=== PATIENT | male | born 1960 | race Caucasian/White ===

== ENCOUNTER 2017-04-11 12:14 | Inpatient (IN) | payer OTHER ==
[~2017-04-11] VITALS: Ht 182.9 cm; Wt 92.3 kg
--- NOTE | 2017-04-11 12:40 | NUR ---
NADIRA [employer] IN CUSTODY FOR MEDICAL CLEARANCE . PT COMPLAINS OF PALPITATION WHOLE DAY. PLACED ON GOWNED .
--- NOTE | 2017-04-11 12:40 | NUR ---
PLACED ON MONITOR.
[2017-04-11] MEDS ORDERED: DILTIAZEM HCL 25 MG IV ONE (12:49)
[2017-04-11 12:53] LABS: BASOPHILS # (AUTO) 0.1 /CMM (0.0-0.2); BASOPHILS % (AUTO) 0.6 % (0.0-2.0); EOSINOPHILS # (AUTO) 0.1 /CMM (0.0-0.7); EOSINOPHILS % (AUTO) 1.3 % (0.0-6.0); HEMATOCRIT 43 % (39-51); HEMOGLOBIN 14.1 g/dL (13.5-17.5); LYMPHOCYTES # (AUTO) 1.6 /CMM (0.8-4.8); LYMPHOCYTES % (AUTO) 18.2 % (20.0-44.0); MEAN CORPUSCULAR HEMOGLOBIN 29 PG (26.0-33.0); MEAN CORPUSCULAR HGB CONC 33 g/dl (31.0-36.0); MEAN CORPUSCULAR VOLUME 89 fL (80-96); MONOCYTES # (AUTO) 0.5 /CMM (0.1-1.30); NEUTROPHILS # (AUTO) 6.6 /CMM (1.8-8.9); NEUTROPHILS % (AUTO) 73.9 % (43.0-81.0); PLATELET COUNT (AUTO) 331 /CMM (150-450); RDW COEFFICIENT OF VARIATION 13.5 (11.5-15.0); RED BLOOD CELL COUNT(AUTO) 4.86 MIL/uL (4.5-6.0); WHITE BLOOD COUNT (AUTO) 8.9 K/uL (4.3-11.0)
--- NOTE | 2017-04-11 12:56 | NUR ---
CALLED [facility], INSTRUCTIONAL TECHNOLOGY TEACHER ELIGIBILITY SPECIALIST WAS PAGED.
[2017-04-11] MEDS ORDERED: IV NS 0.9% 1,000 ML BAG IV ONE (13:00)
[2017-04-11] MEDS ORDERED: DILTIAZEM HCL 50 MG IV IV ONE (13:00)
[2017-04-11 13:04] LABS: CALCIUM, SERUM 8.7 mg/dL (8.5-10.1); CREATININE 1.1 mg/dL (0.6-1.3); POTASSIUM 4.4 mmol/L (3.5-5.1)
[2017-04-11 13:09] LABS: INR 1.09 (0.87-1.13); PROTHROMBIN TIME 11.3 SECS (9.5-12.7)
[2017-04-11 13:13] LABS: TROPONIN I 0.057 ng/mL (0.00-0.056)
[2017-04-11] MEDS ORDERED: ASPIRIN EC 325 MG TABLET.DR PO ONE (13:17)
[2017-04-11] MEDS ORDERED: ASPIRIN 325 MG TABLET PO ONE (13:30)
--- NOTE | 2017-04-11 13:36 | NUR ---
PATIENT WILL BE ADMITTED INTO ROOM 122-1.
--- NOTE | 2017-04-11 14:23 | NUR ---
GAVE REPORT TO TORI WEBSTER 114 TELE NEW ONSET AFIB/AFLUTTER DR ESPINOSA ADMITTING
[2017-04-11 14:30] VITALS: BP 104/80
--- NOTE | 2017-04-11 14:30 | NUR ---
VMWARE ADMINISTRATOR ADMITTING NOTES: REC'D REPORT FROM ANDREW MTZ RN. PT ADMITTED TO [facility] RM 112/1, TRANSFERRED VIA GURNEY ACCOMPANIED BY RN AND 4 POLICEMEN. PT IS AMBULATORY W/ STEADY GAIT. PT IS A/O X4, DENIES ANY PAIN/ DISCOMFORT AT THIS TIME. PT ON ROOM AIR, SATURATING AT 95%, NO SOB NOTED. ON TELEMONITOR, NOTED ATRIAL FLUTTER W/ HR 85 BPM. HAS L AC G20, SL, FLUSHED, PATENT & INTACT W/ NO S/SX OF INFECTION/ INFILTRATION NOTED. DR. ESPINOSA AWARE OF PT'S ADMISSION W/ ORDERS MADE AND CARRIED OUT. PT ORIENTED TO ROOM. PROVIDED COMFORT & SAFETY MEASURES. CALL LIGHT PLACED W/IN REACH. NO WOUNDS NOTED. WILL CONTINUE TO MONITOR.
[2017-04-11] MEDS ORDERED: ONDANSETRON HCL/PF 4 MG/2 ML VIAL IVP PRN (15:00)
[2017-04-11] MEDS ORDERED: MAG HYDROX/AL HYDROX/SIMETH 30 ML UDC PO PRN (15:00)
[2017-04-11] MEDS ORDERED: ZOLPIDEM TARTRATE 5 MG TABLET PO PRN (15:00)
[2017-04-11] MEDS ORDERED: ACETAMINOPHEN 325 MG TABLET PO PRN (15:00)
[2017-04-11] MEDS ORDERED: MAGNESIUM HYDROXIDE 30 ML UDC PO PRN (15:00)
[2017-04-11] MEDS ORDERED: HYDROCODONE/APAP 5/325MG 1 EACH TABLET PO PRN (15:00)
[2017-04-11] MEDS ORDERED: Z GUARD REMEDY 2 OZ OINT TP PRN (15:00)
[2017-04-11 16:00] VITALS: BP 110/80
[2017-04-11] MEDS ORDERED: ENOXAPARIN SODIUM 40 MG/0.4 ML DISP.SYRIN SQ SCH (16:00)
--- NOTE | 2017-04-11 18:05 | NUR ---
RN NOTES: PT REFERRED TO DR. ESPINOSA FOR HR 140'S, BP 137/97. PT DENIES ANY CHEST PAIN AND PALPITATIONS. PER MD, GIVE LOPRESSOR 5 MG IV Q4H PRN FOR HR >110. GIVE DOSE NOW THEN IF IT DOESN'T WORK, WE CAN START AMIO GTT.
[2017-04-11] MEDS: METOPROLOL TARTRATE INJ 5 MG/5 ML AMPUL IVP PRN ×2 (18:25→20:42)
--- NOTE | 2017-04-11 18:53 | NUR ---
RN NOTES: DR. ESPINOSA UPDATED PT CONDITION POST GIVING LOPRESSOR IVP. PT HR AT 80'S. ORDERED TO START METOPROLOL TARTRATE 50 MG PO BID SCHEDULED.
--- NOTE | 2017-04-11 19:00 | NUR ---
PLANT PHYSIOLOGY TEACHER CLOSING NOTES: PT KEPT WELL RESTED. NEEDS ATTENDED. TELEMONITOR STILL ATRIAL FLUTTER W/ HR NOW AT 80'S. NO C/O CHEST PAIN AND PALPITATION W/IN SHIFT. L AC G20 KEPT PATENT & INTACT W/ NO S/SX OF INFECTION/ INFILTRATION. HAS HANDCUFF ON R ARM W/ 1 ROBOT DESIGNER AT BEDSIDE. CALL LIGHT W/IN REACH. ENDORSED TO PM RN FOR ALEXIS.
--- NOTE | 2017-04-11 19:54 | NUR ---
MIXING HOUSE OPERATOR INITIAL NOTES: PT RECEIVED ASLEEP IN BED, HOB ELEVATED. NEEDS ATTENDED. TELEMONITOR STILL ATRIAL FLUTTER W/ HR NOW AT 80'S. NO C/O CHEST PAIN AND PALPITATION W/IN SHIFT. L AC G20 KEPT PATENT & INTACT W/ NO S/SX OF INFECTION/ INFILTRATION. HAS HANDCUFF ON R ARM W/ 1 OCCUPATIONAL THERAPY SUPERVISOR AT BEDSIDE. CALL LIGHT W/IN REACH. ENDORSED TO PM RN FOR ALEXIS.
[2017-04-11 20:00] VITALS: BP 117/78
[2017-04-11 20:19] VITALS: BP 117/78
[2017-04-12] VITALS (7 sets, daily range): BP systolic 98–120; BP diastolic 62–92
[2017-04-12 06:01] LABS: BASOPHILS % (AUTO) 0.6 % (0.0-2.0); EOSINOPHILS # (AUTO) 0.1 /CMM (0.0-0.7); EOSINOPHILS % (AUTO) 1.1 % (0.0-6.0); HEMATOCRIT 44 % (39-51); HEMOGLOBIN 14.6 g/dL (13.5-17.5); LYMPHOCYTES # (AUTO) 2.2 /CMM (0.8-4.8); LYMPHOCYTES % (AUTO) 24.8 % (20.0-44.0); MEAN CORPUSCULAR HEMOGLOBIN 29 PG (26.0-33.0); MEAN CORPUSCULAR HGB CONC 33 g/dl (31.0-36.0); MEAN CORPUSCULAR VOLUME 89 fL (80-96); MONOCYTES # (AUTO) 0.6 /CMM (0.1-1.30); NEUTROPHILS % (AUTO) 66.5 % (43.0-81.0); PLATELET COUNT (AUTO) 316 /CMM (150-450); RDW COEFFICIENT OF VARIATION 14.3 (11.5-15.0); RED BLOOD CELL COUNT(AUTO) 4.96 MIL/uL (4.5-6.0)
[2017-04-12 06:51] LABS: ALBUMIN 3.5 g/dL (3.4-5.0); BILIRUBIN,TOTAL 0.6 mg/dL (0.2-1.0); CALCIUM, SERUM 8.7 mg/dL (8.5-10.1); CREATININE 1.1 mg/dL (0.6-1.3); PHOSPHORUS 3.3 mg/dL (2.5-4.9); POTASSIUM 4.3 mmol/L (3.5-5.1); TOTAL PROTEIN, SERUM 6.7 g/dL (6.4-8.2)
--- NOTE | 2017-04-12 06:54 | NUR ---
SUPERVISOR RIDES CLOSING NOTES: PT ENDORSED ASLEEP IN BED, HOB ELEVATED. NEEDS ATTENDED. TELEMONITOR STILL ATRIAL FLUTTER W/ HR NOW AT 80'S. NO C/O CHEST PAIN AND PALPITATION W/IN SHIFT. L AC G20 KEPT PATENT & INTACT W/ NO S/SX OF INFECTION/ INFILTRATION. HAS HANDCUFF ON R ARM W/ 1 BEATER LEAD AT BEDSIDE. CALL LIGHT W/IN REACH. ENDORSED TO PM RN FOR ALEXIS.
--- NOTE | 2017-04-12 07:30 | NUR ---
TANK FARM ATTENDANT NOTES: PT RECEIVED ASLEEP IN BED, HOB ELEVATED. NEEDS ATTENDED. TELEMONITOR STILL ATRIAL FLUTTER W/ HR NOW ATHR 110 NO C/O CHEST PAIN AND PALPITATION W/IN SHIFT. L AC G20 KEPT PATENT & INTACT W/ NO S/SX OF INFECTION/ INFILTRATION. HAS HANDCUFF ON R ARM W/ 1 UNIVERSITY LIBRARIAN AT BEDSIDE. CALL LIGHT W/IN REACH. ENDORSED TO PM RN FOR ALEXIS. Addendum: 04/12/17 at 0803 by REYNA RIOS RN WILL CONT TO MONITOR CLOSELY
[2017-04-12] MEDS: METOPROLOL TARTRATE INJ 5 MG/5 ML AMPUL IVP PRN (07:56)
--- NOTE | 2017-04-12 08:00 | NUR ---
[place] CLERK NOTE HR [address] ESPINOSA AT BEED SIDE ,AWARE OF HR OK TO GIVE METOPROLOL 5MG IVP AT THIS TIME ,GIVEN ORDERED ,WILL F\U
--- NOTE | 2017-04-12 08:47 | NUR ---
INTERVENTIONAL TECH NOTE HR 94 AT THIS TIME ,WILL CONT TO MONITOR CLOSELY
[2017-04-12] MEDS: METOPROLOL TARTRATE 50 MG TABLET PO SCH ×2 (08:52→16:13)
[2017-04-12] MEDS: PANTOPRAZOLE 40 MG TABLET.DR PO SCH (08:52)
--- NOTE | 2017-04-12 08:54 | NUR ---
LANCE CREWMEMBER/MLRS SERGEANT NOTE METOPROLOL 50 MG PO HOLD AT THIS TIME, PRN METOPROLOL 5 MG IVP WAS GIVEN BY ORDER DENISSE CAVAZOS TO MONITOR CLOSELY
--- NOTE | 2017-04-12 11:10 | NUR ---
OIL SPOT WASHER NOTE RESTING COMFORTABLY, NOT IN ACUTE DISTRESS
--- NOTE | 2017-04-12 14:29 | NUR ---
rn telehealth note dr hernandez spring machine operator aware that earlier hr was afib 45 Lopressor given as ordered 5 mg iv, .stated ok will check patient Addendum: 04/12/17 at 1522 by REYNA RIOS RN CORRECTION HR 145
[2017-04-12] MEDS ORDERED: DILTIAZEM HCL 25 MG IV IV PRN (14:30)
[2017-04-12] MEDS ORDERED: IPRATROPIUM NEB FS 0.5 MG/2.5 ML AMPUL.NEB NEB PRN (14:30)
[2017-04-12] MEDS ORDERED: METOPROLOL TARTRATE INJ 5 MG/5 ML AMPUL IVP PRN (15:00)
--- NOTE | 2017-04-12 15:22 | NUR ---
SEWING TECHNIQUES DEMONSTRATOR NOTE CLARIFICATION CARDIZEM AND METOPROLOL IV PRN ORDER DONE ,IF HR ABOVE 110 OK TO GIVE CARDIZEM OR METOPROLOL
--- NOTE | 2017-04-12 15:50 | NUR ---
BIANKA RN NOTE ON BREATHING TX ORDERED T AT BEDSIDE
--- NOTE | 2017-04-12 16:09 | NUR ---
BIANKA RN NOTE SMOKING CESSATION GIVEN, UNDERSTOOD
[2017-04-12] MEDS ORDERED: RIVAROXABAN 10 MG TABLET PO SCH (17:00)
[2017-04-12] MEDS: DILTIAZEM HCL 30 MG TABLET PO SCH (17:25)
--- NOTE | 2017-04-12 18:54 | NUR ---
BIANKA RN NOTE C\O SOB PLACED ON 2L NC ,SAT 96%, WILL F\U
[2017-04-13] VITALS: BP 119/80
[2017-04-13 04:00] VITALS: BP 136/76
[2017-04-13] MEDS: DILTIAZEM HCL 30 MG TABLET PO SCH ×3 (06:15→12:08)
--- NOTE | 2017-04-13 06:23 | NUR ---
RN NOTES 0600 remains with right hand cuff due to police custody. Alert and verbally responsive; no agitation during the shift; cooperative. Remains with uncontrolled atrial fib/flutter. On cardizem po q 6hrs. Tolerates oral fluids. LAC saline lock patent and intact. Refused bed bath when offered. Call light within reach
[2017-04-13 06:38] LABS: BASOPHILS % (AUTO) 0.3 % (0.0-2.0); EOSINOPHILS # (AUTO) 0.1 /CMM (0.0-0.7); EOSINOPHILS % (AUTO) 1.6 % (0.0-6.0); HEMATOCRIT 44 % (39-51); HEMOGLOBIN 14.9 g/dL (13.5-17.5); LYMPHOCYTES # (AUTO) 2.2 /CMM (0.8-4.8); LYMPHOCYTES % (AUTO) 29.1 % (20.0-44.0); MEAN CORPUSCULAR HEMOGLOBIN 30 PG (26.0-33.0); MEAN CORPUSCULAR HGB CONC 34 g/dl (31.0-36.0); MEAN CORPUSCULAR VOLUME 88 fL (80-96); MONOCYTES # (AUTO) 0.6 /CMM (0.1-1.30); MONOCYTES % (AUTO) 7.7 % (2.0-12.0); NEUTROPHILS # (AUTO) 4.7 /CMM (1.8-8.9); NEUTROPHILS % (AUTO) 61.3 % (43.0-81.0); PLATELET COUNT (AUTO) 288 /CMM (150-450); RDW COEFFICIENT OF VARIATION 14.1 (11.5-15.0); RED BLOOD CELL COUNT(AUTO) 4.98 MIL/uL (4.5-6.0); WHITE BLOOD COUNT (AUTO) 7.7 K/uL (4.3-11.0)
[2017-04-13 06:44] LABS: CALCIUM, SERUM 8.9 mg/dL (8.5-10.1)
--- NOTE | 2017-04-13 07:20 | NUR ---
BIANKA INITIAL NOTE RECEIVED PT IN BED, ASLEEP, EASY TO AROUSE, ABLE TO FOLLOW COMMANDS, RESPONSIVE TO NAME, PT IS ON RA, SATING WELL, BREATHING IS UNLABORED AND EVEN, NO S/S OF SOB OR RESP.DISTRESSED NOTED AT THIS TIME, PT IS ON TELE MONITOR SHOWING A FLUTTER @ 132 BPM, NO CHEST PAIN OR DISCOMFORT NOTED AT THIS TIME, PT HAS URINAL AT BEDSIDE, PT HAS R HANDCUFF IN PLACE D/T POLICE CUSTODY, PT HAS LAC#20G,SL,C/D/I/PATENT, FLUSHING WELL, NO S/S OF INFECTION/ INFILTRATION NOTED AT THIS TIME, ALL SAFETY MEASURES IN PLACE AT ALL TIMES, CALL LIGHT WITHIN EASY REACH, WILL MONITOR PT CLOSELY FOR CHANGES
[2017-04-13 08:00] VITALS: BP 100/69
[2017-04-13] MEDS: PANTOPRAZOLE 40 MG TABLET.DR PO SCH (08:21)
[2017-04-13] MEDS: METOPROLOL TARTRATE 50 MG TABLET PO SCH (08:22)
[2017-04-13 12:00] VITALS: BP 104/80
[2017-04-13 12:08] VITALS: BP 104/80
[2017-04-13] MEDS ORDERED: MOME13HF INH (12:29)
[2017-04-13] MEDS ORDERED: AMLO10TA2 PO (12:29)
[2017-04-13] MEDS ORDERED: TIOT18CA3 IH (12:29)
[2017-04-13] MEDS ORDERED: MONT10TA22 PO (12:29)
[2017-04-13] MEDS ORDERED: ALBU18HF2 INH (12:29)
[2017-04-13] MEDS ORDERED: ATOR20TA PO (12:29)
--- NOTE | 2017-04-13 14:55 | NUR ---
BIANKA NOTE PT REQUESTED TO LEAVE AMA, EXPLAINED RISK AND BENEFITS, PT STILL WANTED TO LEAVE AMA, INFORMED DR. ESPINOSA, IVS REMOVED, ALL BELONGINGS WITH PT, BELONGING LIST SIGNED, ALL RX WITH PT, PT LEFT VIA WHEELCHAIR TP WAITING ROOM, PT DID NOT WANT LABS AND ANY TESET RESULTS COPIES. PT REFUSED TO WAIT FOR FRIEND.
== END 2017-04-13 14:53 | disposition left against medical advice (07) | DRG 280 ==
LOC: ER 12:16 → TELE1 14:33 → TELE-TD 04-12 15:31
PROVIDERS: ADMIT Family Medicine; ATTEND Family Medicine
DX: I48.92 Unspecified atrial flutter (principal); I21.4 Non-ST elevation (NSTEMI) myocardial infarction; I50.23 Acute on chronic systolic (congestive) heart failure; I48.91 Unspecified atrial fibrillation; F17.210 Nicotine dependence, cigarettes, uncomplicated; F15.90 Other stimulant use, unspecified, uncomplicated; Z79.899 Other long term (current) drug therapy; J44.9 Chronic obstructive pulmonary disease, unspecified; Z71.6 Tobacco abuse counseling
CPT/HCPCS: 36415; 71010-TC; 80048-TC; 80053-TC; 80061-TC; 83735-TC; 83880; 84100-TC; 84443-TC; 84484-TC; 85025-TC; 85730-TC; 87081-TC; 93307-TC; A4606; A6402; J1650; J3490; J7030; Z7610